=== PATIENT | male | born 1935 | race Caucasian/White ===

== ENCOUNTER 2021-09-10 06:39 | Emergency (ER) | payer MEDICARE, SELFPAY ==
[2021-09-10 06:46] VITALS: BP 134/67; PULSE 72; RESP 18; TEMP 36.5; O2SAT 99
--- NOTE | 2021-09-10 07:14 | ED.GENADUL_ITS ---
Discharge Plan Disposition Patient Disposition: HOME Condition: Stable Discharge Details Clinical Impression: Tick bite of right thigh with local reaction Primary Care Provider: Unknown,Unknown ED Provider: Erick Huber Home Meds and New Rx's Prescriptions: Continued pantoprazole 20 mg Tablet,Delayed Release (Dr/Ec) 20 mg PO DAILY budesonide-formoterol [Symbicort] 160-4.5 mcg/actuation Hfa Aerosol Inhaler INHALATION BID cyanocobalamin (vitamin B-12) 1,000 mcg/mL Kit Discharge Instructions Instructions: Tick Bite (ED) Additional Instructions: Please contact your primary care physician to arrange follow-up. Return to the ER immediately for any worsening or new concerning symptoms. Medical Decision Making 86-year-old male here after tick bite with embedded nail plate. Unclear as to how long tick was embedded. Topical Anesthetic Let Was Applied. Attempted mouth part removal and was able to remove majority of mouthparts. Doxycycline 200 mg prophylactic dose was provided. Obtain outside hospital record, last tetanus was 2008. Will give Boostrix. Usual customary discharge instructions reviewed with the patient. HPI General Mode of arrival: ambulatory . Date/Time Provider Initiated Documentation: 09/10/21 07:03 . Limitations to Documentation: no limitations . Information obtained by: patient . HPI Narrative: 86-year-old with tick bite right thigh. Patient noticed the tick this morning and attempted removal. Force of the head was embedded was not removed. He has some inflammation at the site of removal but no surrounding erythema. Symptoms are mild with no modifiers. No associated fever. Related Data Home Medications Medication Instructions Recorded Confirmed budesonide-formoterol HFA 160 inhalation BID 09/10/21 mcg-4.5 mcg/actuation aerosol inhaler (Symbicort) cyanocobalamin (vitamin B-12) mcg 09/10/21 1,000 mcg/mL injection kit pantoprazole 20 mg tablet,delayed 20 mg PO DAILY 09/10/21 09/10/21 release Allergies Allergy/AdvReac Type Severity Reaction Status Date / Time No Known Allergies Allergy Unverified 09/10/21 06:49 General Stated Complaint: RashLesion DEISY: 4 Review of Systems Constitutional Constitutional: Denies fever(s) Integumentary/Breasts Skin/Breast: Reports as per HPI PFSH All Active Problems (Updated 09/10/21 @ 07:20 by Erick Huber MD) Tick bite of right thigh with local reaction (Acute) Social History Smoking/Tobacco Use Status: Never Smoking risk assessment performed?: Yes Alcohol Intake: never Drug use: Never Substance use type: does not use Do you feel safe at home: Yes Do you feel safe in your relationship?: Yes Exam Skin Wounds: wounds noted (Right thigh mild inflammation at site of tick removal w/ embedded mouthpart) Other: No erythema migrans Course Vital Signs Vital signs: Vital Signs Temperature 36.5 C 09/10/21 06:46 Pulse 72 09/10/21 06:46 Respiratory Rate 18 09/10/21 06:46 Blood Pressure 134/67 09/10/21 06:46 Pulse Oximetry 99 09/10/21 06:46 Temperature 36.5 C 09/10/21 06:46 Temperature Source Temporal Artery Scan 09/10/21 06:46 Pulse 72 09/10/21 06:46 Respiratory Rate 18 09/10/21 06:46 Blood Pressure 134/67 09/10/21 06:46 Blood Pressure Position Sitting 09/10/21 06:46 Pulse Oximetry 99 09/10/21 06:46 Oxygen Delivery Method Room Air 09/10/21 06:46 Oxygen Flow Rate 0 09/10/21 06:46
[2021-09-10] MEDS: Lidocaine/Epinephri/Tetracaine Topical Gel 3 ML (07:20)
[2021-09-10] MEDS: Doxycycline Hyclate 100 MG CAP 200 MG PO (07:22)
[2021-09-10 08:32] VITALS: BP 134/67; PULSE 72; RESP 18; TEMP 36.5; O2SAT 99
== END 2021-09-10 08:31 | disposition home or self-care (01) ==
PROVIDERS: Emergency Provider Student in an Organized Health Care Education/Training Program
DX: S70.361A Insect bite (nonvenomous), right thigh, initial encounter (principal); W57.XXXA Bitten or stung by nonvenomous insect and other nonvenomous arthropods, initial encounter
CPT/HCPCS: 90471; 99283

== ENCOUNTER 2023-05-13 11:15 | Emergency (ER) | payer MEDICARE, SELFPAY ==
[2023-05-13 11:29] VITALS: BP 121/62; PULSE 91; RESP 20; TEMP 36.8; O2SAT 96
[2023-05-13 11:38] VITALS: RESP 20
--- NOTE | 2023-05-13 11:52 | W.ED.GENAD ---
HPI General Date/Time Provider Initiated Documentation: 05/13/23 11:35. HPI Narrative: 88-year-old male recent travel to [facility]?n for family wedding presents with fever fatigue cough over the last day. Patient and patient's tested positive for COVID this morning. Called their primary and were referred in for evaluation Related Data Home Medications Medication Instructions Recorded Confirmed budesonide-formoterol HFA 160 1 puff inhalation BID 09/10/21 05/13/23 mcg-4.5 mcg/actuation aerosol inhaler (Symbicort) cyanocobalamin (vitamin B-12) 1,000 mcg IM .every 3 weeks 09/10/21 05/13/23 1,000 mcg/mL injection kit pantoprazole 20 mg tablet,delayed 20 mg PO DAILY 09/10/21 05/13/23 release ascorbic acid (vitamin C) 1,000 mg 1 g PO DAILY 05/13/23 05/13/23 capsule cholecalciferol (vitamin D3) 125 125 mcg PO DAILY 05/13/23 05/13/23 mcg (5,000 unit) capsule cod liver oil 1 cap PO DAILY 05/13/23 05/13/23 flaxseed oil 1,000 mg capsule 1,000 mg PO DAILY 05/13/23 05/13/23 glutamine 500 mg capsule 500 mg PO DAILY 05/13/23 05/13/23 psyllium husk 0.4 gram capsule 0.4 g PO DAILY 05/13/23 05/13/23 (Daily Fiber) zinc gluconate 50 mg tablet 50 mg PO DAILY 05/13/23 05/13/23 Allergies Allergy/AdvReac Type Severity Reaction Status Date / Time No Known Allergies Allergy Unverified 05/13/23 11:42 General Stated Complaint: GenMedical DEISY: 3 Review of Systems Narrative: Review of Systems Constitutional: Fever, fatigue Eyes: negative ENT: negative Cardiovascular: negative Respiratory: Cough Gastrointestinal: negative : negative Musculoskeletal: negative Skin: negative Neurologic: negative Psych: negative Exam Narrative Exam Narrative: Physical Examination General: alert, awake, cooperative, resting comfortably, no acute distress HEENT: normocephalic, atraumatic; PERRL, EOM intact, conjunctiva normal; no nasal discharge; moist mucous membranes, oral and pharyngeal mucosa normal, tolerating secretions Neck: supple, trachea midline; full ROM Chest: normal to inspection Respiratory: normal respiratory effort, speaking in full sentences, clear to auscultation, no wheezing, rales or rhonchi Cardiac: regular rate, regular rhythm, S1S2 intact, no murmurs rubs or gallops GI: abdomen soft, non-tender, non-distended; no palpable mass or hepatosplenomegaly Skin: no lesions, rashes or trauma appreciated Neuro: AAOx3, normal speech, moving all extremities Psych: Appropriate mood and affect Course Vital Signs Vital signs: Vital Signs Temperature 36.8 C 05/13/23 11:29 Pulse 91 H 05/13/23 11:29 Respiratory Rate 20 05/13/23 11:29 Blood Pressure 121/62 05/13/23 11:29 Pulse Oximetry 96 05/13/23 11:29 Temperature 36.8 C 05/13/23 11:29 Pulse 91 H 05/13/23 11:29 Respiratory Rate 20 05/13/23 11:38 Respiratory Effort Normal 05/13/23 11:38 Respiratory Depth Normal 05/13/23 11:38 Blood Pressure 121/62 05/13/23 11:29 Pulse Oximetry 96 05/13/23 11:29 Medical Decision Making 88-year-old male recent travel to [facility]?n presents with fever fatigue cough tested positive for COVID this morning referred in by primary care office for evaluation. Patient is afebrile nontoxic nonhypoxic normotensive alert oriented. Lungs clear bilaterally. Appears well-hydrated. Home care instructions for symptomatic management and proactive hydration given to patient and family. Given strict return precautions for any worsening symptoms. Low suspicion for superimposed pneumonia ACS PE aortic pathology pneumothorax or pleural effusion given history and physical. Quality:SDOH Health Related Social Needs: No Data to Display [facility] All Active Problems (Updated 05/13/23 @ 11:55 by Manuel Garcia MD) COVID (Acute) Social History Smoking/Tobacco Use Status: Never Smoking risk assessment performed?: Yes Alcohol Intake: never Drug use: Never Substance use type: does not use Do you feel safe at home: Yes Do you feel safe in your relationship?: Yes Discharge Plan Disposition Patient Disposition: Home Condition: Stable Discharge Details Chief Complaint: GenMedical Clinical Impression: COVID Primary Care Provider: Unknown,Unknown ED Provider: Manuel Garcia Home Meds and New Rx's Prescriptions: No Action pantoprazole 20 mg Tablet,Delayed Release (Dr/Ec) 20 mg PO DAILY budesonide-formoterol [Symbicort] 160-4.5 mcg/actuation Hfa Aerosol Inhaler INHALATION BID cyanocobalamin (vitamin B-12) 1,000 mcg/mL Kit Eliquis 5 mg tablet 5 mg PO BID atorvastatin 20 mg tablet 20 mg PO QHS amlodipine 5 mg tablet 5 mg PO DAILY carvedilol 12.5 mg tablet 12.5 mg PO BID Rx Instructions: must administer with a meal/food cod liver oil Capsule 1 cap PO DAILY flaxseed oil 1,000 mg capsule 1,000 mg PO DAILY psyllium husk [Daily Fiber] 0.4 gram capsule 0.4 g PO DAILY glutamine 500 mg capsule 500 mg PO DAILY ascorbic acid (vitamin C) 1,000 mg capsule 1 g PO DAILY cholecalciferol (vitamin D3) 125 mcg (5,000 unit) capsule 125 mcg PO DAILY zinc gluconate 50 mg tablet 50 mg PO DAILY Discharge Instructions Instructions: COVID-19 (Coronavirus Disease 2019) (ED)
== END 2023-05-13 12:27 | disposition home or self-care (01) ==
PROVIDERS: Emergency Provider Emergency Medicine
DX: U07.1 COVID-19 (principal); Z79.01 Long term (current) use of anticoagulants
CPT/HCPCS: 99282